=== PATIENT | female | born 1990 | race Two or more races ===

== ENCOUNTER 2024-05-23 09:53 | Emergency (ER) | payer OTHER ==
[~2024-05-23] VITALS: Ht 157.5 cm; Wt 60.8 kg
[2024-05-23] MEDS ORDERED: ADDERALL 10 MG10 MG PO (10:16)
[2024-05-23] MEDS ORDERED: CEFTRIAXONE SODIUM 1,000 MG VIAL IV STA (10:41)
[2024-05-23] MEDS ORDERED: CEFTRIAXONE SODIUM 1,000 MG VIAL ONE (10:46)
[2024-05-23 12:48] LABS: HEMATOCRIT 39.8 % (36.0-45.00); HEMOGLOBIN 13.3 g/dL (12.0-15.00); MEAN CELL VOLUME 91.6 fL (80.00-100.00); MEAN CORPUSCULAR HEMOGLOBIN 30.6 pg (27.00-32.0); MEAN CORPUSCULAR HGB CONC 33.5 g/dl (32.0-36.0); PLATELET COUNT 189 K/uL (150-450); RED BLOOD COUNT 4.35 M/uL (4.00-6.00); RED CELL DISTRIBUTION WIDTH 12.8 % (11.5-14.5)
== END 2024-05-23 14:11 | disposition home or self-care (01) ==
LOC: ER 09:54
PROVIDERS: General Practice
DX: S51.852A Open bite of left forearm, initial encounter (principal); W54.0XXA Bitten by dog, initial encounter; Y93.89 Activity, other specified; Y92.89 Other specified places as the place of occurrence of the external cause; Y99.8 Other external cause status